=== PATIENT | male | born 1945 | race Caucasian/White ===

== ENCOUNTER 2017-02-11 19:21 | Observation (INO) | payer MEDICARE ==
[~2017-02-11] VITALS: Ht 175.3 cm; Wt 107.8 kg
[~2017-02-11 19:21] MED LIST: ASPI-496 PO; ATOR20TA9 PO; DOCU100C8 PO; GABA600T2 PO; ISOS20TA3 PO; LEVO125T5 PO; METO25TA35 PO; NITR0.4T8 SL; RANO10002 PO; TAMS0.4C2 PO; VALS1TAB7 PO
[2017-02-11] MEDS ORDERED: NITROGLYCERIN OINT 2%, 1GM TP ONE ×2 (20:25→20:30)
[2017-02-11] MEDS ORDERED: ASPIRIN 81 MG TABLET CHEW PO ONE (20:30)
[2017-02-11] MEDS ORDERED: SODIUM CHLORIDE FLUSH 10ML SYR IVF ONE (20:30)
[2017-02-11 20:40] LABS: HEMOGLOBIN 15.1 g/dL (13.7-18.0)
[2017-02-11 20:43] LABS: BLOOD UREA NITROGEN 18 mg/dL (7-18)
[2017-02-11 20:47] LABS: IS PT STATUS REG ER OR PRE ER? YES
[2017-02-11] MEDS ORDERED: MORPHINE SULFATE 4 MG/ML, 1ML IVPush PRN (21:00)
[2017-02-11] MEDS ORDERED: MORPHINE SULFATE 4 MG/ML, 1ML ONE (22:20)
[2017-02-12] MEDS ORDERED: POLYETHYLENE GLYCOL 17 GM PACKET PO PRN
[2017-02-12] MEDS ORDERED: ACETAMINOPHEN 325 MG TABLET PO PRN
[2017-02-12] MEDS ORDERED: LABETALOL 5MG/ML, 20ML IV PRN
[2017-02-12] MEDS ORDERED: DOCUSATE 100 MG CAPSULE PO PRN
[2017-02-12] MEDS ORDERED: ATORVASTATIN 80 MG TABLET PO SCH
[2017-02-12] MEDS ORDERED: TRAZODONE 50MG TABLET PO PRN
[2017-02-12] MEDS ORDERED: BISACODYL 10 MG SUPP PR PRN
[2017-02-12] MEDS ORDERED: ONDANSETRON ODT 4 MG PO PRN
[2017-02-12] MEDS ORDERED: NITROGLYCERIN 0.4 MG BOTTLE (25 TABS) SL PRN
[2017-02-12] MEDS ORDERED: GABAPENTIN 300 MG CAPSULE PO SCH
[2017-02-12] MEDS: SODIUM CHLORIDE 0.9% 1,000 ML IV SCH ×2 (00:34→12:49)
[2017-02-12] MEDS: HEPARIN 5,000 UNITS/ML, 1ML SQ SCH ×3 (00:34→16:00)
[2017-02-12 02:00] VITALS: BP 135/82
[2017-02-12 05:41] LABS: ASPARTATE AMINO TRANSFERASE 19 U/L (15-37); BLOOD UREA NITROGEN 18 mg/dL (7-18)
[2017-02-12 05:42] LABS: IS PT STATUS REG ER OR PRE ER? NO
[2017-02-12] MEDS ORDERED: LEVOTHYROXINE 125 MCG TABLET PO SCH ×2 (06:00→09:00)
[2017-02-12] MEDS ORDERED: METOPROLOL TARTRATE 25 MG TABLET PO SCH ×2 (06:30→09:00)
[2017-02-12] MEDS ORDERED: ASPIRIN 81 MG TABLET EC PO SCH ×2 (06:30→09:00)
[2017-02-12 06:48] VITALS: BP 146/90
[2017-02-12] MEDS ORDERED: VALSARTAN 160 MG TABLET PO SCH (09:00)
[2017-02-12] MEDS ORDERED: ISOSORBIDE MONONITRATE ER 60 MG TABLET PO SCH (09:00)
[2017-02-12] MEDS ORDERED: RANOLAZINE 500 MG TAB.ER.12H PO SCH (09:00)
[2017-02-12] MEDS ORDERED: TAMSULOSIN 0.4 MG CAP.ER.24H PO SCH (09:00)
[2017-02-12] MEDS ORDERED: HYDROCHLOROTHIAZIDE 12.5 MG CAPSULE PO SCH (09:00)
[2017-02-12] MEDS ORDERED: REGADENOSON 0.4 MG/5 ML SYRINGE ONE (09:13)
[2017-02-12 13:30] VITALS: BP 125/80
[2017-02-12 13:31] LABS: IS PT STATUS REG ER OR PRE ER? NO
[2017-02-13] MEDS ORDERED: METOPROLOL TARTRATE 25 MG TABLET PO SCH (06:30)
== END 2017-02-12 16:47 | disposition home or self-care (01) ==
LOC: ED 22:35 → EDIP 22:59 → INTOOBSV 22:59 → 5SO 23:26
PROVIDERS: ADMIT Internal Medicine; ATTEND Internal Medicine
DX: R07.89 Other chest pain (principal); E03.9 Hypothyroidism, unspecified; E78.5 Hyperlipidemia, unspecified; I25.119 Atherosclerotic heart disease of native coronary artery with unspecified angina pectoris; J44.9 Chronic obstructive pulmonary disease, unspecified; Z87.891 Personal history of nicotine dependence; I10 Essential (primary) hypertension; N40.0 Benign prostatic hyperplasia without lower urinary tract symptoms; N28.1 Cyst of kidney, acquired; Z95.5 Presence of coronary angioplasty implant and graft; Z85.850 Personal history of malignant neoplasm of thyroid; Z79.82 Long term (current) use of aspirin
CPT/HCPCS: 36415; 71010; 78452; 80048; 80053; 82040; 83735; 84439; 84443; 84484; 85025; 85610; 93005; 93017; 96361; 96372; 96374; 99285; A9502; C9898; G0378; J1644; J2270; J2785; J7030

== ENCOUNTER 2018-01-30 08:38 | Emergency (ER) | payer MEDICARE ==
[~2018-01-30] VITALS: Ht 185.4 cm; Wt 106.0 kg
[~2018-01-30 08:38] MED LIST changes: +DOCU100C33 PO; -DOCU100C8 PO; +NITR0.4T28 SL; -NITR0.4T8 SL
[2018-01-30] MEDS ORDERED: ONDANSETRON 2MG/ML, 2ML ONE (08:45)
[2018-01-30] MEDS ORDERED: MORPHINE SULFATE 4 MG/ML, 1ML ONE (08:45)
[2018-01-30] MEDS ORDERED: MORPHINE SULFATE 4 MG/ML, 1ML IVPush PRN (09:00)
[2018-01-30] MEDS ORDERED: SODIUM CHLORIDE FLUSH 10ML SYR IVF ONE (09:00)
[2018-01-30] MEDS ORDERED: PLEASE ENTER ALLERGIES MC SCH (09:00)
[2018-01-30 09:21] LABS: BASOPHILS # (AUTO) 0.03 x10^3/uL (0-0.1); BASOPHILS % (AUTO) 1 % (0-1); EOSINOPHILS # (AUTO) 0.65 x10^3/uL (0-0.4); EOSINOPHILS % (AUTO) 11 % (1-7); LYMPHOCYTES # (AUTO) 1.23 x10^3/uL (1-3.4); LYMPHOCYTES % (AUTO) 20 % (22-44); MD NO; MEAN CORPUSCULAR HEMOGLOBIN 33.6 pg (27.5-34.5); MEAN CORPUSCULAR HGB CONC 34.4 g/dL (33.2-36.2); MEAN CORPUSCULAR VOLUME 97.7 fL (81-97); MEAN PLATELET VOLUME 8.7 fL (7.4-10.4); MONOCYTES # (AUTO) 0.32 x10^3/uL (0.2-0.8); MONOCYTES % (AUTO) 5 % (2-9); NEUTROPHILS # (AUTO) 3.92 x10^3/uL (1.8-6.8); NEUTROPHILS % (AUTO) 64 % (42-75); PLATELET COUNT 125 x10^3/uL (130-400); RED BLOOD COUNT 4.56 x10^6/uL (4.38-5.82); RED CELL DISTRIBUTION WIDTH 13.3 % (9.4-14.8)
[2018-01-30 09:32] LABS: ALANINE AMINOTRANSFERASE 29 U/L (12-78); ALBUMIN 3.7 g/dL (3.4-5.0); ANION GAP 4 mmol/L (5-15); CALCIUM 8.7 mg/dL (8.5-10.1); CHLORIDE 109 mmol/L (98-107); CREATININE 1.73 mg/dL (0.7-1.3)
[2018-01-30 09:36] LABS: ALKALINE PHOSPHATASE 144 U/L (45-117); TOTAL PROTEIN 7.1 g/dL (6.4-8.2); TROPONIN I < 0.015 ng/mL (0.000-0.045)
[2018-01-30 10:20] VITALS: BP 166/70
[2018-01-30] MEDS ORDERED: SODIUM CHLORIDE 0.9% 1,000 ML IV SCH (11:30)
[2018-01-30] MEDS ORDERED: ONDANSETRON 2MG/ML, 2ML IVPush PRN (11:30)
[2018-01-30] MEDS ORDERED: POLYETHYLENE GLYCOL 17 GM PACKET PO PRN (11:30)
[2018-01-30] MEDS ORDERED: BISACODYL 10 MG SUPP PR PRN (11:30)
[2018-01-30] MEDS ORDERED: HYDROcodone/APAP 5/325 TABLET PO PRN (11:30)
[2018-01-30] MEDS ORDERED: NITROGLYCERIN 0.4 MG BOTTLE (25 TABS) SL PRN (11:30)
[2018-01-30] MEDS ORDERED: ACETAMINOPHEN 325 MG TABLET PO PRN (11:30)
[2018-01-30] MEDS ORDERED: DOCUSATE 100 MG CAPSULE PO PRN (11:30)
[2018-01-30] MEDS ORDERED: morphine SULFATE 10 MG/ML, 1ML IVPush PRN (11:30)
[2018-01-30] MEDS ORDERED: METOPROLOL TARTRATE 25 MG TABLET PO SCH (21:00)
[2018-01-30] MEDS ORDERED: TEMPLATE NON-FORMULARY MED. (Gabapentin** 300 MG) PO SCH (21:00)
[2018-01-30] MEDS ORDERED: RANOLAZINE 1000 MG PO SCH (21:00)
[2018-01-30] MEDS ORDERED: ISOSORBIDE MONONITRATE 20 MG TABLET PO SCH (21:00)
[2018-01-30] MEDS ORDERED: ATORVASTATIN 20 MG TABLET PO SCH (21:00)
[2018-01-31] MEDS ORDERED: ASPIRIN 325 MG TABLET EC PO SCH ×4 (06:00→06:30)
[2018-01-31] MEDS ORDERED: TAMSULOSIN 0.4 MG CAP.ER.24H PO SCH ×4 (09:00)
[2018-01-31] MEDS ORDERED: LEVOTHYROXINE 125 MCG TABLET PO SCH ×4 (09:00)
== END 2018-01-30 12:23 | disposition home or self-care (01) ==
LOC: MERGE 08:38 → ED 09:17 → UNDOADMOB 10:18 → EDIP 10:18 → INTOOBSV 10:18 → OBSVTOIN 10:18 → UNDODISIN 11:42 → ED 12:23
DX: R07.2 Precordial pain (principal); I12.9 Hypertensive chronic kidney disease with stage 1 through stage 4 chronic kidney disease, or unspecified chronic kidney disease; N18.9 Chronic kidney disease, unspecified; I25.10 Atherosclerotic heart disease of native coronary artery without angina pectoris; E03.9 Hypothyroidism, unspecified
CPT/HCPCS: 36415; 71045; 80053; 83880; 84484; 85025; 93005; 96374; G0378

== ENCOUNTER 2018-09-29 17:19 | Emergency (ER) | payer MEDICARE ==
[~2018-09-29] VITALS: Ht 175.3 cm; Wt 107.0 kg
[2018-09-29] MEDS ORDERED: LEVO150T5 PO (17:44)
[2018-09-29] MEDS ORDERED: LOSA25TA6 PO (17:44)
[2018-09-29] MEDS ORDERED: ATOR40TA PO (17:44)
[2018-09-29 18:26] LABS: BASOPHILS # (AUTO) 0.09 x10^3/uL (0-0.1); BASOPHILS % (AUTO) 1 % (0-1); EOSINOPHILS # (AUTO) 1.09 x10^3/uL (0-0.4); EOSINOPHILS % (AUTO) 13 % (1-7); LYMPHOCYTES # (AUTO) 1.63 x10^3/uL (1-3.4); LYMPHOCYTES % (AUTO) 20 % (22-44); MD NO; MEAN CORPUSCULAR HEMOGLOBIN 34.2 pg (27.5-34.5); MEAN CORPUSCULAR HGB CONC 34.3 g/dL (33.2-36.2); MEAN CORPUSCULAR VOLUME 99.7 fL (81-97); MEAN PLATELET VOLUME 8.8 fL (7.4-10.4); MONOCYTES # (AUTO) 0.61 x10^3/uL (0.2-0.8); MONOCYTES % (AUTO) 7 % (2-9); NEUTROPHILS # (AUTO) 4.88 x10^3/uL (1.8-6.8); NEUTROPHILS % (AUTO) 59 % (42-75); PLATELET COUNT 137 x10^3/uL (130-400); RED BLOOD COUNT 4.45 x10^6/uL (4.38-5.82); RED CELL DISTRIBUTION WIDTH 13.3 % (9.4-14.8)
[2018-09-29 18:28] LABS: INTERNATIONAL NORMALIZED RATIO 1.08 (0.93-1.1); PROTHROMBIN TIME 11.4 Seconds (9.6-11.5)
[2018-09-29 18:29] LABS: ALANINE AMINOTRANSFERASE 33 U/L (12-78); ALBUMIN 3.6 g/dL (3.4-5.0); ANION GAP 9 mmol/L (5-15); CALCIUM 8.4 mg/dL (8.5-10.1); CHLORIDE 109 mmol/L (98-107); CREATININE 1.53 mg/dL (0.7-1.3)
[2018-09-29 18:33] LABS: ALKALINE PHOSPHATASE 119 U/L (45-117); TROPONIN I < 0.015 ng/mL (0.000-0.045)
[2018-09-29] MEDS ORDERED: MORPHINE SULFATE 4 MG/ML, 1ML ONE (18:44)
[2018-09-29] MEDS ORDERED: MORPHINE SULFATE 4 MG/ML, 1ML IVPush PRN (19:00)
[2018-09-29 19:56] VITALS: BP 145/90
== END 2018-09-29 19:58 | disposition home or self-care (01) ==
LOC: ED 19:43
DX: R07.2 Precordial pain (principal); E03.9 Hypothyroidism, unspecified; I25.10 Atherosclerotic heart disease of native coronary artery without angina pectoris; I10 Essential (primary) hypertension; E78.5 Hyperlipidemia, unspecified; Z87.891 Personal history of nicotine dependence
CPT/HCPCS: 36415; 71045; 80053; 83880; 84484; 85025; 85610; 93005; 96374

== ENCOUNTER 2019-08-27 14:26 | Inpatient (IN) | payer MEDICARE ==
[~2019-08-27] VITALS: Ht 180.3 cm; Wt 107.2 kg
[~2019-08-27 14:26] MED LIST changes: +ATOR20TA37 PO; -ATOR20TA9 PO; +ATOR40TA PO; -GABA600T2 PO; +GABA600T7 PO; +LEVO150T5 PO; +LOSA25TA25 PO
[2019-08-27] MEDS ORDERED: ASPIRIN 81 MG TABLET CHEW PO ONE (15:00)
[2019-08-27] MEDS ORDERED: SODIUM CHLORIDE FLUSH 10ML SYR IVF ONE (15:00)
[2019-08-27 15:08] LABS: BASOPHILS # (AUTO) 0.04 x10^3/uL (0-0.1); BASOPHILS % (AUTO) 1 % (0-1); EOSINOPHILS # (AUTO) 0.85 x10^3/uL (0-0.4); EOSINOPHILS % (AUTO) 12 % (1-7); LYMPHOCYTES # (AUTO) 1.86 x10^3/uL (1-3.4); LYMPHOCYTES % (AUTO) 27 % (22-44); MD NO; MEAN CORPUSCULAR HEMOGLOBIN 34.1 pg (27.5-34.5); MEAN CORPUSCULAR HGB CONC 34.2 g/dL (33.2-36.2); MEAN CORPUSCULAR VOLUME 99.8 fL (81-97); MEAN PLATELET VOLUME 8.2 fL (7.4-10.4); MONOCYTES # (AUTO) 0.63 x10^3/uL (0.2-0.8); MONOCYTES % (AUTO) 9 % (2-9); NEUTROPHILS # (AUTO) 3.55 x10^3/uL (1.8-6.8); NEUTROPHILS % (AUTO) 51 % (42-75); PLATELET COUNT 134 x10^3/uL (130-400); RED BLOOD COUNT 4.33 x10^6/uL (4.38-5.82); RED CELL DISTRIBUTION WIDTH 13.4 % (9.4-14.8)
[2019-08-27 15:15] LABS: ALANINE AMINOTRANSFERASE 30 U/L (12-78); ALBUMIN 3.5 g/dL (3.4-5.0); ANION GAP 6 mmol/L (5-15); CHLORIDE 109 mmol/L (98-107); CREATININE 1.66 mg/dL (0.7-1.3)
[2019-08-27 15:22] LABS: ALKALINE PHOSPHATASE 135 U/L (45-117); TOTAL PROTEIN 6.8 g/dL (6.4-8.2); TROPONIN I < 0.015 ng/mL (0.000-0.045)
[2019-08-27] MEDS ORDERED: ASPIRIN 81 MG TABLET CHEW ONE (15:23)
--- NOTE | 2019-08-27 15:47 | NUR ---
UOB TO BATHROOM WITH ASSISTANCE OF . NO CP AT THIS TIME. CONTINUE TO MONITOR
[2019-08-27] MEDS ORDERED: SODIUM CHLORIDE FLUSH 10ML SYR IVF PRN (16:30)
--- NOTE | 2019-08-27 16:44 | NUR ---
PT AND AWARE OF INTENTION TO ADMIT. CONTINUE TO MONITOR
--- NOTE | 2019-08-27 17:32 | NUR ---
REPORT TO HANDY LILLY. PT TO BE TRANSPORTED TO FLOOR.
--- NOTE | 2019-08-27 17:41 | NUR ---
HOSPITALIST AT BEDSIDE
[2019-08-27] MEDS ORDERED: ENOXAPARIN 40 MG/0.4 ML SQ SCH (18:00)
[2019-08-27] MEDS ORDERED: DOCUSATE 100 MG CAPSULE PO PRN (18:00)
[2019-08-27] MEDS ORDERED: ACETAMINOPHEN 325 MG TABLET PO PRN (18:00)
[2019-08-27] MEDS ORDERED: ONDANSETRON 2MG/ML, 2ML IVPush PRN (18:00)
[2019-08-27] MEDS ORDERED: NITROGLYCERIN SINGLE TAB 0.4 MG SL PRN (18:00)
[2019-08-27] MEDS ORDERED: morphine SULFATE 10 MG/ML, 1ML IVPush PRN (18:00)
[2019-08-27] MEDS ORDERED: LABETALOL 5MG/ML, 20ML IVPush PRN (18:00)
[2019-08-27] MEDS ORDERED: POLYETHYLENE GLYCOL 17 GM PACKET PO PRN (18:00)
[2019-08-27] MEDS ORDERED: BISACODYL 10 MG SUPP PR PRN (18:00)
[2019-08-27 18:20] VITALS: BP 182/95
[2019-08-27] MEDS ORDERED: ENOXAPARIN 30 MG/0.3 ML SQ SCH (18:30)
[2019-08-27] MEDS: RANOLAZINE 500 MG TAB.ER.12H PO SCH (18:33)
[2019-08-27] MEDS ORDERED: hydrALAzine 20 MG/ML, 1ML ONE (18:41)
[2019-08-27] MEDS: ISOSORBIDE MONONITRATE 20 MG TABLET PO SCH (18:44)
[2019-08-27 18:47] VITALS: BP 181/88
[2019-08-27 18:56] VITALS: BP 173/89
[2019-08-27] MEDS ORDERED: hydrALAzine 20 MG/ML, 1ML IV ONE (19:00)
[2019-08-27 19:08] LABS: TROPONIN I < 0.015 ng/mL (0.000-0.045)
[2019-08-27 19:52] VITALS: BP 125/72
[2019-08-27] MEDS ORDERED: GABAPENTIN 300 MG CAPSULE PO SCH (21:00)
[2019-08-27] MEDS ORDERED: ATORVASTATIN 40 MG TABLET PO SCH (21:00)
[2019-08-27] MEDS ORDERED: ISOSORBIDE MONONITRATE 20 MG TABLET PO SCH (21:00)
[2019-08-27] MEDS ORDERED: RANOLAZINE 500 MG TAB.ER.12H PO SCH (21:00)
[2019-08-27] MEDS ORDERED: METOPROLOL TARTRATE 25 MG TABLET PO SCH (21:00)
[2019-08-27] MEDS: ASPIRIN 81 MG TABLET EC PO SCH (21:32)
[2019-08-28 00:23] VITALS: BP 104/71
[2019-08-28 00:30] LABS: TROPONIN I < 0.015 ng/mL (0.000-0.045)
[2019-08-28 05:18] LABS: BASOPHILS # (AUTO) 0.02 x10^3/uL (0-0.1); BASOPHILS % (AUTO) 0 % (0-1); EOSINOPHILS # (AUTO) 0.89 x10^3/uL (0-0.4); EOSINOPHILS % (AUTO) 12 % (1-7); LYMPHOCYTES # (AUTO) 1.97 x10^3/uL (1-3.4); LYMPHOCYTES % (AUTO) 27 % (22-44); MD NO; MEAN CORPUSCULAR HEMOGLOBIN 34.2 pg (27.5-34.5); MEAN CORPUSCULAR HGB CONC 33.6 g/dL (33.2-36.2); MEAN CORPUSCULAR VOLUME 101.5 fL (81-97); MONOCYTES # (AUTO) 0.57 x10^3/uL (0.2-0.8); MONOCYTES % (AUTO) 8 % (2-9); NEUTROPHILS # (AUTO) 3.89 x10^3/uL (1.8-6.8); NEUTROPHILS % (AUTO) 53 % (42-75); PLATELET COUNT 120 x10^3/uL (130-400); RED BLOOD COUNT 4.17 x10^6/uL (4.38-5.82); RED CELL DISTRIBUTION WIDTH 13.9 % (9.4-14.8)
[2019-08-28 05:25] LABS: CHLORIDE 110 mmol/L (98-107)
[2019-08-28 05:35] LABS: ALANINE AMINOTRANSFERASE 26 U/L (12-78); ALBUMIN 3.4 g/dL (3.4-5.0); ALKALINE PHOSPHATASE 110 U/L (45-117); ANION GAP 5 mmol/L (5-15); BILIRUBIN,TOTAL 1.2 mg/dL (0.2-1.0); CALCIUM 8.4 mg/dL (8.5-10.1); CHOLESTEROL, TOTAL 112 mg/dL (140-239); CREATININE 1.57 mg/dL (0.7-1.3); HDL CHOL % 25 % (26-37); HDL CHOLESTEROL (DIRECT) 28 mg/dL (40-60); LDL CHOLESTEROL,CALCULATED 49 mg/dL (54-169); LDL/HDL RATIO 1.8 (0.5-3.0); TOTAL PROTEIN 6.5 g/dL (6.4-8.2); TRIGLYCERIDES 176 mg/dL (50-200); VLDL CHOLESTEROL 35 mg/dL (0-25)
[2019-08-28] MEDS: RANOLAZINE 500 MG TAB.ER.12H PO SCH (06:01)
[2019-08-28] MEDS: ISOSORBIDE MONONITRATE 20 MG TABLET PO SCH (06:02)
[2019-08-28 07:29] VITALS: BP 128/80
[2019-08-28] MEDS ORDERED: REGADENOSON 0.4 MG/5 ML SYRINGE ONE (07:53)
[2019-08-28] MEDS: ASPIRIN 81 MG TABLET EC PO SCH (07:56)
[2019-08-28] MEDS ORDERED: LOSARTAN 25MG TABLET PO SCH (09:00)
[2019-08-28] MEDS ORDERED: TAMSULOSIN 0.4 MG CAP.ER.24H PO SCH (09:00)
[2019-08-28] MEDS ORDERED: LEVOTHYROXINE 150 MCG TABLET PO SCH (09:00)
[2019-08-28 13:25] VITALS: BP 132/90
[2019-08-28] MEDS ORDERED: ENOXAPARIN 40 MG/0.4 ML SQ SCH (18:30)
== END 2019-08-28 16:00 | disposition home or self-care (01) | DRG 305 ==
LOC: ED 16:24 → EDIP 16:25 → ED 16:50 → 5SO 18:18 → DCLOUNGE 08-28 13:45
PROVIDERS: ADMIT Hospitalist; ATTEND Hospitalist
DX: I16.0 Hypertensive urgency (principal); I25.110 Atherosclerotic heart disease of native coronary artery with unstable angina pectoris; R07.89 Other chest pain; E78.5 Hyperlipidemia, unspecified; I12.9 Hypertensive chronic kidney disease with stage 1 through stage 4 chronic kidney disease, or unspecified chronic kidney disease; N18.2 Chronic kidney disease, stage 2 (mild); N40.0 Benign prostatic hyperplasia without lower urinary tract symptoms; Z79.82 Long term (current) use of aspirin; Z83.3 Family history of diabetes mellitus; Z87.891 Personal history of nicotine dependence; Z95.5 Presence of coronary angioplasty implant and graft; Z79.899 Other long term (current) drug therapy
CPT/HCPCS: 36415; 71045; 78452; 80053; 80061; 83735; 84100; 84439; 84443; 84484; 85025; 93005; 93017; 99285; G0378; J1650; J2785; A9502; C9898; J0360

== ENCOUNTER → 2019-11-30 | Outpatient (CLI) | payer MEDICARE | END | disposition home or self-care (01) | LOC: CVU 07:04 | PROVIDERS: ATTEND Family Medicine Adult Medicine | DX: I73.9 Peripheral vascular disease, unspecified (principal); I12.9 Hypertensive chronic kidney disease with stage 1 through stage 4 chronic kidney disease, or unspecified chronic kidney disease; N18.9 Chronic kidney disease, unspecified; I25.10 Atherosclerotic heart disease of native coronary artery without angina pectoris; E78.5 Hyperlipidemia, unspecified; Z87.891 Personal history of nicotine dependence | CPT/HCPCS: 93922 ==

== ENCOUNTER 2020-01-07 11:17 | Emergency (ER) | payer MEDICARE ==
[~2020-01-07] VITALS: Ht 175.3 cm; Wt 108.4 kg
--- NOTE | 2020-01-07 11:46 | NUR ---
FIRST CONTACT WITH PT. PT HAD 10/10 CHEST PAIN TODAY STARTING @1000, TOOK 2X DOSES OF NITRO WHICH BROUGHT PAIN 7/10, HX ANGINA. NEW ONSET BLE SWELLING. PT'S AOX4. RESPS EVEN AND UNLABORED. PT DENIES CP/ABD PAIN/N/V AT THIS TIME. ALL MONITORS IN PLACE. CALL LIGHT WITHIN REACH. NSR RATE 0'S ON BALLET SOLOIST. EDMD AT BEDSIDE TO EVALUATE AT THIS TIME.
--- NOTE | 2020-01-07 12:05 | NUR ---
BREAK RN: PT VSS, NAD NOTED AND DENIES PAIN AT THIS TIME. BP, ECG, SP02 MONITORS INPLACE. CALL LIGHT W/I REACH. LABS DRAWN AND RESULTS PENDING.
[2020-01-07 12:12] LABS: BASOPHILS # (AUTO) 0.04 x10^3/uL (0-0.1); BASOPHILS % (AUTO) 1 % (0-1); EOSINOPHILS # (AUTO) 0.89 x10^3/uL (0-0.4); EOSINOPHILS % (AUTO) 13 % (1-7); LYMPHOCYTES # (AUTO) 1.76 x10^3/uL (1-3.4); LYMPHOCYTES % (AUTO) 25 % (22-44); MD NO; MEAN CORPUSCULAR HEMOGLOBIN 32.8 pg (27.5-34.5); MEAN CORPUSCULAR HGB CONC 34.3 g/dL (33.2-36.2); MEAN CORPUSCULAR VOLUME 95.8 fL (81-97); MEAN PLATELET VOLUME 8.6 fL (7.4-10.4); MONOCYTES # (AUTO) 0.48 x10^3/uL (0.2-0.8); MONOCYTES % (AUTO) 7 % (2-9); NEUTROPHILS # (AUTO) 3.85 x10^3/uL (1.8-6.8); NEUTROPHILS % (AUTO) 55 % (42-75); PLATELET COUNT 131 x10^3/uL (130-400); RED BLOOD COUNT 4.59 x10^6/uL (4.38-5.82)
[2020-01-07 12:22] LABS: INTERNATIONAL NORMALIZED RATIO 1.06 (0.93-1.1); PROTHROMBIN TIME 11.2 Seconds (9.6-11.5)
[2020-01-07 12:24] LABS: ALANINE AMINOTRANSFERASE 26 U/L (12-78); ALBUMIN 3.8 g/dL (3.4-5.0); ANION GAP 5 mmol/L (5-15); CALCIUM 8.4 mg/dL (8.5-10.1); CHLORIDE 109 mmol/L (98-107); CREATININE 1.46 mg/dL (0.7-1.3)
[2020-01-07 12:28] LABS: ALKALINE PHOSPHATASE 139 U/L (45-117); BILIRUBIN,TOTAL 1.3 mg/dL (0.2-1.0); TOTAL PROTEIN 7.1 g/dL (6.4-8.2); TROPONIN I < 0.015 ng/mL (0.000-0.045)
--- NOTE | 2020-01-07 13:17 | NUR ---
PT AMB TO BR AND BACK TO ROOM WITH STEADY GAIT.
[2020-01-07 14:06] VITALS: BP 145/84
--- NOTE | 2020-01-07 14:06 | NUR ---
PT RESTING IN [facility]. PT'S AOX4. RESPS EVEN AND UNLABORED. ALL MONITORS IN PLACE. CALL LIGHT WITHIN REACH.
--- NOTE | 2020-01-07 14:21 | NUR ---
PT'S STATES "HE IS FINE. WE WANNA GO HOME." EDMD NOTIFIED.
--- NOTE | 2020-01-07 14:33 | NUR ---
Patient given discharge instructions and they have confirmed that they understand the instructions. Patient ambulatory with steady gait.
== END 2020-01-07 14:35 | disposition home or self-care (01) ==
LOC: ED 14:25
DX: I20.0 Unstable angina (principal); R07.89 Other chest pain; I10 Essential (primary) hypertension; E78.5 Hyperlipidemia, unspecified; Z87.891 Personal history of nicotine dependence; Z95.5 Presence of coronary angioplasty implant and graft
CPT/HCPCS: 36415; 71045; 80053; 84484; 85025; 85610; 85730; 93005; 99285

== ENCOUNTER 2020-04-02 20:45 | Emergency (ER) | payer MEDICARE ==
[~2020-04-02] VITALS: Ht 175.3 cm; Wt 107.3 kg
--- NOTE | 2020-04-02 20:45 | NUR ---
PT BIB [facility] FROM HOME FOR INTERMITTENT ANGINA THROUGHOUT THE DAY. PT DESCRIBES SOMETHING SQUEEZING HIS HEART. PT TOOK 3 NITRO THROUGHOUT THE DAY WITH MINIMAL RELIEF. PT ALSO TOOK 324MG ASA AT HOME. 12-LEAD BY EMS UNREMARKABLE, SINUS MARILYN 50s. OTHER VS PER EMS: 175/74, 96% ON RA, BS 169. PT HAS HX OF UNSTABLE ANGINA WITH STENTS PLACED. SEES DR. DUNLAP. PT A&OX4, AMBULATORY, NO S/S OF DISTRESS UPON ARRIVAL TO ED. DENIES CHEST PAIN AT THIS TIME. EKG DONE IMMEDIATELY. POC RV'WD WITH PT.
--- NOTE | 2020-04-02 21:08 | NUR ---
ERP WAS IN TO SEE PT. PT AMBULATED TO BR WITHOUT DIFFICULTY.
[2020-04-02 21:17] LABS: BASOPHILS # (AUTO) 0.04 x10^3/uL (0-0.1); BASOPHILS % (AUTO) 1 % (0-1); EOSINOPHILS # (AUTO) 1.15 x10^3/uL (0-0.4); EOSINOPHILS % (AUTO) 13 % (1-7); LYMPHOCYTES # (AUTO) 2.21 x10^3/uL (1-3.4); LYMPHOCYTES % (AUTO) 25 % (22-44); MD NO; MEAN CORPUSCULAR HEMOGLOBIN 32.9 pg (27.5-34.5); MEAN CORPUSCULAR VOLUME 96.9 fL (81-97); MEAN PLATELET VOLUME 8.6 fL (7.4-10.4); MONOCYTES % (AUTO) 7 % (2-9); NEUTROPHILS # (AUTO) 4.94 x10^3/uL (1.8-6.8); NEUTROPHILS % (AUTO) 55 % (42-75); PLATELET COUNT 147 x10^3/uL (130-400); RED BLOOD COUNT 4.67 x10^6/uL (4.38-5.82); RED CELL DISTRIBUTION WIDTH 13.3 % (9.4-14.8)
[2020-04-02] MEDS ORDERED: ASPIRIN 81 MG TABLET CHEW PO ONE (21:30)
[2020-04-02 21:31] LABS: ALANINE AMINOTRANSFERASE 31 U/L (12-78); ALBUMIN 3.9 g/dL (3.4-5.0); ANION GAP 8 mmol/L (5-15); CALCIUM 8.7 mg/dL (8.5-10.1); CHLORIDE 109 mmol/L (98-107); CREATININE 1.51 mg/dL (0.7-1.3)
[2020-04-02 21:35] LABS: ALKALINE PHOSPHATASE 140 U/L (45-117); TOTAL PROTEIN 7.6 g/dL (6.4-8.2); TROPONIN I < 0.015 ng/mL (0.000-0.045)
--- NOTE | 2020-04-02 22:18 | NUR ---
RV'WD PLAN FOR ADMISSION WITH PT. PT TALKING WITH ON THE PHONE.
--- NOTE | 2020-04-02 22:29 | NUR ---
ERP WAS IN TO SPEAK WITH PT AGAIN. PT HAS APPT WITH DR. DUNLAP TOMORROW, DOES NOT WANT TO STAY IN HOSPITAL TONIGHT.
[2020-04-02 22:30] VITALS: BP 148/83
--- NOTE | 2020-04-02 23:05 | NUR ---
D/C INSTRUCTIONS & F/U APPT RV'WD WITH PT, HE VERBALIZES UNDERSTANDING. INSTRUCTED PT TO RETURN TO ED FOR RETURN OF ANGINA OR ANY OTHER CONCERNING SYMPTOMS. PT AMBULATED OUT OF ED WITHOUT DIFFICULTY, STATES HE WILL TAKE A CAB HOME.
== END 2020-04-02 23:12 | disposition home or self-care (01) ==
LOC: ED 22:05 → EDIP 22:34 → UNDOADMIN 22:34
DX: R07.89 Other chest pain (principal); I25.10 Atherosclerotic heart disease of native coronary artery without angina pectoris; I12.9 Hypertensive chronic kidney disease with stage 1 through stage 4 chronic kidney disease, or unspecified chronic kidney disease; N18.9 Chronic kidney disease, unspecified; E03.9 Hypothyroidism, unspecified; E78.5 Hyperlipidemia, unspecified; Z95.9 Presence of cardiac and vascular implant and graft, unspecified; Z87.891 Personal history of nicotine dependence
CPT/HCPCS: 36415; 71045; 80053; 83880; 84484; 85025; 93005; 99285

== ENCOUNTER 2020-06-06 16:27 | Emergency (ER) | payer MEDICARE ==
[~2020-06-06] VITALS: Ht 175.3 cm; Wt 107.0 kg
--- NOTE | 2020-06-06 16:48 | NUR ---
THIS IS A 74 YEAR OLD MALE WHO STATES RECENT PLUNKETT PLACEMENT FOR URINARY RETENTION WHILE ON THE WAY HOME FROM [facility] ([facility] [[email or web address] PT HERE TODAY FOR FOLLOW UP. NOTICED SWELLING ON RIGHT ARM AND HAND PT STATES FROM IV. PLUNKETT TO DD WITH SMALL AMOUNT OF BLOOD AT SITE, DRAINING WELL
[2020-06-06 18:02] LABS: MICROSCOPIC INDICATED
[2020-06-06 18:07] LABS: BASOPHILS # (AUTO) 0.06 x10^3/uL (0-0.1); BASOPHILS % (AUTO) 1 % (0-1); EOSINOPHILS # (AUTO) 0.89 x10^3/uL (0-0.4); EOSINOPHILS % (AUTO) 7 % (1-7); LYMPHOCYTES % (AUTO) 10 % (22-44); MD NO; MEAN CORPUSCULAR HEMOGLOBIN 32.6 pg (27.5-34.5); MEAN CORPUSCULAR HGB CONC 33.8 g/dL (33.2-36.2); MEAN PLATELET VOLUME 8.6 fL (7.4-10.4); MONOCYTES # (AUTO) 0.85 x10^3/uL (0.2-0.8); MONOCYTES % (AUTO) 7 % (2-9); NEUTROPHILS % (AUTO) 75 % (42-75); PLATELET COUNT 191 x10^3/uL (130-400); RED BLOOD COUNT 4.13 x10^6/uL (4.38-5.82); RED CELL DISTRIBUTION WIDTH 13.3 % (9.4-14.8)
[2020-06-06 18:17] LABS: ANION GAP 10 mmol/L (5-15); CALCIUM 8.7 mg/dL (8.5-10.1); CHLORIDE 110 mmol/L (98-107); CREATININE 3.22 mg/dL (0.7-1.3)
--- NOTE | 2020-06-06 18:25 | NUR ---
PT AND TEARFUL AND EXPRESS THAT THEY LEFT AMA AT [facility], THEY APPOLOGIZED FOR NOT TELLING THE TRUTH, INCREASE EMOTIONAL SUPPORT GIVEN. AND PT STATES THEY DID NOT LIKE THE TREATMENT AT THAT HOSPITAL, MD NOTIFIED.
--- NOTE | 2020-06-06 18:37 | NUR ---
FEQUENTLY OUT AT NURSING STATION AND OTHER PATIENTS ROOM LOOKING FOR THIS RN, WITH MANY QUESTIONS. IS REQUESTING PATIENTS 1600 MEDICATION. EXPLAINED UNABLE TO GIVE UNTIL MD ORDERS. INCREASE EMOTIONAL SUPPORT GIVEN
[2020-06-06 19:00] VITALS: BP 149/99
--- NOTE | 2020-06-06 19:00 | NUR ---
BEDSIDE REPORT FROM ABIGAIL LILLY. PTS LEFT ER FOR A MOMENT. VSS. CALL LIGHT IN REACH
--- NOTE | 2020-06-06 19:49 | NUR ---
PT CAME OUT OF ROOM LOOKING FOR THE MD. RN OFFERED TO HELP AND FOLLOWED PT TO ROOM. PLUNKETT EMPTIED. RN EXPLAINED TO PT AND SPOUSE THAT RESULTS ARE IN AND MD WILL BE IN TO EXPLAIN RESULTS AFTER HE LOOKED AT CHART FOR [facility]. VSS. PT REQUESTED PLUNKETT TO BE REMOVED. RN EDUCATED PT THAT IT NEEDED TO STAY IN PLACE TO DRAIN BLADDER.
--- NOTE | 2020-06-06 20:35 | NUR ---
Patient and Caregiver given discharge instructions and they have confirmed that they understand the instructions. Educated on how to change almeida bag. Patient ambulatory with steady gait.
== END 2020-06-06 20:37 | disposition home or self-care (01) ==
LOC: ED 16:57
DX: N17.9 Acute kidney failure, unspecified (principal); R33.8 Other retention of urine; I10 Essential (primary) hypertension; I25.10 Atherosclerotic heart disease of native coronary artery without angina pectoris; E78.5 Hyperlipidemia, unspecified; E03.9 Hypothyroidism, unspecified; Z87.891 Personal history of nicotine dependence; Z98.61 Coronary angioplasty status
CPT/HCPCS: 36415; 76770; 80048; 81001; 85025; 87086; 99284

== ENCOUNTER 2021-01-02 17:05 | Emergency (ER) | payer MEDICARE ==
[~2021-01-02] VITALS: Ht 175.3 cm; Wt 102.2 kg
[~2021-01-02 17:05] MED LIST changes: +ISOS20TA10 PO; -ISOS20TA3 PO
--- NOTE | 2021-01-02 17:30 | NUR ---
BIB EMS. PT STATES CHEST PAIN STARTED AT 1615 WITH SUDDEN SHARP ONSET THAT WAS RELIVED AFTER NITRO X2 AND ASA X4. PT STATES CP DOES NOT RADIATE. PT HOOKED UP TO CONTINIOUS BP, O2 AND CARDIAC MONITORS. EKG COMPLETE. MD. HYDE BEDSIDE.
[2021-01-02 18:02] LABS: BASOPHILS % (AUTO) 1 % (0-1); EOSINOPHILS % (AUTO) 11 % (1-7); LYMPHOCYTES % (AUTO) 20 % (22-44); MEAN CORPUSCULAR HEMOGLOBIN 32.8 pg (27.5-34.5); MEAN CORPUSCULAR HGB CONC 35.6 g/dL (33.2-36.2); MEAN PLATELET VOLUME 8.5 fL (7.4-10.4); MONOCYTES % (AUTO) 7 % (2-9); NEUTROPHILS % (AUTO) 62 % (42-75); PLATELET COUNT 154 x10^3/uL (130-400); RED BLOOD COUNT 4.85 x10^6/uL (4.38-5.82); RED CELL DISTRIBUTION WIDTH 13.9 % (9.4-14.8)
[2021-01-02 18:04] LABS: MD NO
[2021-01-02 18:14] LABS: ALANINE AMINOTRANSFERASE 30 U/L (12-78); ANION GAP 7 mmol/L (5-15); CALCIUM 8.7 mg/dL (8.5-10.1); CHLORIDE 109 mmol/L (98-107); CREATININE 1.37 mg/dL (0.7-1.3)
[2021-01-02 18:19] LABS: ALKALINE PHOSPHATASE 161 U/L (45-117); BILIRUBIN,TOTAL 0.8 mg/dL (0.2-1.0); TOTAL PROTEIN 8.2 g/dL (6.4-8.2); TROPONIN I < 0.015 ng/mL (0.000-0.045)
[2021-01-02 19:27] VITALS: BP 160/80
--- NOTE | 2021-01-02 19:28 | NUR ---
Pt dc'd with written and verbal instructions. IV dc'd intact. Pt steady on feet, and ambulatory our of ER without difficulty. Pt home with .
[2021-01-02] MEDS ORDERED: OMNIPAQUE 350 MG/ML, 100ML BOTTLE ONE (23:26)
== END 2021-01-02 19:31 | disposition home or self-care (01) ==
LOC: ED 18:03
DX: R07.2 Precordial pain (principal); R07.89 Other chest pain; J02.9 Acute pharyngitis, unspecified; I10 Essential (primary) hypertension; I25.10 Atherosclerotic heart disease of native coronary artery without angina pectoris; E78.5 Hyperlipidemia, unspecified; E03.9 Hypothyroidism, unspecified; R94.31 Abnormal electrocardiogram [ECG] [EKG]
CPT/HCPCS: 36415; 71045; 71260; 80053; 83605; 84484; 85025; 93005; 99285; Q9967